=== PATIENT | female | born 1970 | race Caucasian/White ===

== ENCOUNTER 2018-05-31 20:13 | Outpatient (REF) | payer BC, SELFPAY ==
[2018-05-31 21:05] LABS: TSH (W/Ref FT4) 1.73 uIU/mL (0.358-3.74)
[2018-05-31 21:31] LABS: Cholesterol 176 mg/dL (50-200); HDL Cholesterol 71 mg/dL (40-60); LDL CHOLESTEROL 89 mg/dL (<100); Triglyceride 115 mg/dL (30-150)
== END 2018-05-31 20:14 ==
LOC: NCHCN 20:13
PROVIDERS: PCP Nurse Practitioner Family; Visit Provider Family Medicine
DX: R07.89 Other chest pain (principal)
CPT/HCPCS: 80061; 83721; 84443